=== PATIENT | female | born 1985 | race Hispanic/Latino ===

== ENCOUNTER → 2023-10-23 | Day surgery (SDC) | payer OTHER ==
[~2023-10-23] MED LIST: LACTATED RINGER'S 1,000 ML ONE; LIDOCAINE HCL 2% LOCAL INJ 5 ML SDV VIAL INJ ONE; METFORMIN HCL500 MG PO; MIDAZOLAM HCL 2 MG/2 ML VIAL ONE; PROPOFOL IV EMULSION 10 MG/ML 20 ML VIAL ONE
[2023-10-23 16:49] VITALS: TEMP 97.2
[2023-10-23 17:10] VITALS: BP 120/75; PULSE 73; RESP 17; O2SAT 99
== END | disposition home or self-care (01) ==
LOC: OR 14:56
PROVIDERS: ATTEND Internal Medicine Gastroenterology
DX: K52.832 Lymphocytic colitis (principal); D12.4 Benign neoplasm of descending colon; K64.8 Other hemorrhoids; K21.9 Gastro-esophageal reflux disease without esophagitis; K76.0 Fatty (change of) liver, not elsewhere classified; E61.1 Iron deficiency; D64.9 Anemia, unspecified; R63.4 Abnormal weight loss; K80.20 Calculus of gallbladder without cholecystitis without obstruction; E11.9 Type 2 diabetes mellitus without complications; Z79.84 Long term (current) use of oral hypoglycemic drugs
CPT/HCPCS: 36415; 45380; 45384; 81025; 82948; 93005; J2001; J2250; J2704; J7121